=== PATIENT | male | born 1960 | race Caucasian/White ===

== ENCOUNTER 2017-05-05 20:54 | Emergency (ER) | payer OTHER ==
[2017-05-05] MEDS ORDERED: NS 1,000 ML IV ONE (21:00)
--- NOTE | 2017-05-05 21:05 | EDPHY ---
H & P Stated Complaint: choking at dinner HPI/ROS: HPI CHIEF COMPLAINT: Choking episode, CPR, brief period of unresponsiveness HISTORY OF PRESENT ILLNESS: This patient 57-year-old male he denies having any significant medical history denies taking any daily medications except recently prescribed hydrocodone after a dental procedure. Patient was at dinner tonight he was eating and appeared very somnolent. Have a choking episode according to EMS. His started doing CPR calling 911. EMS reports a brief unresponsive period. Patient had wine this evening. Unclear exactly how much. EMS make contact with him they placed a nasopharyngeal airway in. Placed him on a non- rebreather and brought him to the emergency room during transport he became more and more alert. They did give him 2 mg IN Narcan. This appeared to make an improvement. When I asked the patient what happened he has no idea. He reports he does not know. He denies any complaints. Specifically denies chest pain shortness of breath. Denies headache. Denies focal weakness numbness or tingling. Past Medical History: Denies significant medical history Past Surgical History: Recent dental surgery. Social History: Denies daily use of drugs alcohol tobacco products. Did drink wine tonight. Family History: Noncontributory. ROS REVIEW OF SYSTEMS: Review of systems somewhat limited due to patient's history and clinical picture. History comes from EMS. No family at bedside yet. Exam Constitutional alert and oriented, following commands appropriately, smells of alcohol, triage nursing summary reviewed, vital signs reviewed, awake/alert. Eyes normal conjunctivae and sclera, EOMI, PERRLA. HENT normal inspection, atraumatic, moist mucus membranes, no epistaxis, neck supple/ no meningismus, no raccoon eyes. Respiratory clear to auscultation bilaterally, normal breath sounds, no respiratory distress, no wheezing. Cardiovascular rate normal, regular rhythm, no murmur, no edema, distal pulses normal. Gastrointestinal soft, non-tender, no rebound, no guarding, normal bowel sounds, no distension, no pulsatile mass. Genitourinary no CVA tenderness. Musculoskeletal no midline vertebral tenderness, full range of motion, no calf swelling, no tenderness of extremities, no meningismus, good pulses, neurovascularly intact. Skin pink, warm, & dry, no rash, skin atraumatic. Neurologic awake, alert and oriented x 3, AAOx3, moves all 4 extremities equally, motor intact, sensory intact, CN II-XII intact, normal cerebellar, normal vision, normal speech. Psychiatric normal mood/affect. Heme/Lymph/Immune no lymphadenopathy. Differential Diagnosis: Includes but is not limited to in a particular order acute choking episode, cardiopulmonary arrest, hypoxic arrest, alcohol intoxication, narcotic overdose Medical Decision Making: Plan for this patient EKG, chest x-ray, blood work, monitor for recent a napier from narcotics. Check alcohol level. Gentle IV hydration full manager cardiac cath. Speak with family when they arrived. Re-evaluation: has arrived and reports the nursing staff that he was in the hot tub. He got out of the hot tub made himself peanut butter and jelly sandwich. He then ate a peanut butter and jelly sandwich and started choking on it. Additionally the reports that he has been taking his narcotics for his recent dental surgery additionally he had wine tonight. She reports that he started choking on the peanut butter and jelly sandwich and asked for help. He then became limp and unresponsive with blue lips. called 911 and did CPR. During brief episode of CPR he awoke. Unclear how long he was in the hot tub for this time. EKG interpretation by me on record in [employer] system. Impression time of EKG 2113, this is sinus tachycardia rate of 111. I do not appreciate acute ischemic change. No ST elevation. No significant ST depression. ED x-ray chest one view negative for aspiration negative for acute cardiopulmonary disease. Image interpreted by myself. 2328: This patient is very eager to be discharged from the emergency room is requesting discharge so is his . He is sitting up in bed he has normal vital signs. He did ambulate well throughout the emergency room. Pulse ox 94% . He p.o. challenge well here. He denies any chest pain or shortness of breath. He denies any neck pain. His reports he choking episode that she was able to do the Heimlich maneuver and cleared the peanut butter and jelly sandwich out of his mouth. No loss of pulse. The patient is eager to get home. I did recommend more time for observation here in the emergency room or in the hospital however the patient is decline. He would like to go home. additionally reports she did approximately 45 seconds or less of chest compressions. Given this patient is a negative troponin nonischemic EKG no evidence of pneumothorax on his chest x-ray ambulated well throughout the emergency room no hypoxia no ongoing symptoms I will allow her to go home. Strict return precautions have been given. Source: Patient, EMS - Medical/Surgical History Other PMH: HTN Constitutional: Initial Vital Signs Temperature (C) 36.2 C 05/05/17 21:01 Heart Rate 115 H 05/05/17 21:01 Respiratory Rate 18 05/05/17 21:01 Blood Pressure 169/120 H 05/05/17 21:01 O2 Sat (%) 91 L 05/05/17 21:01 O2 Delivery Mode Room Air O2 (L/minute) 3 Allergies/Adverse Reactions: No Known Allergies Allergy (Unverified 05/05/17 21:28) Medical Decision Making - Diagnostics Imaging Results: Imaging Impressions Chest X-Ray 05/05/17 21:00 Impression: No evidence for pneumonia. - Data Points Laboratory Results: Laboratory Results 05/05/17 21:20 05/05/17 21:00 05/05/17 05/05/17 05/05/17 22:30 21:20 21:00 WBC 7.06 10^3/uL 10^3/uL (3.80-9.50) RBC 4.04 10^6/uL L 10^6/uL (4.40-6.38) Hgb 13.5 g/dL L g/dL (13.7-17.5) Hct 39.8 % L % (40.0-51.0) MCV 98.5 fL fL (81.5-99.8) MCH 33.4 pg pg (27.9-34.1) MCHC 33.9 g/dL g/dL (32.4-36.7) RDW 12.3 % % (11.5-15.2) Plt Count 152 10^3/uL 10^3/uL (150-400) MPV 9.0 fL fL (8.7-11.7) Neut % (Auto) 52.1 % % (39.3-74.2) Lymph % (Auto) 35.1 % % (15.0-45.0) [place] % (Auto) 7.9 % % (4.5-13.0) Eos % (Auto) 2.8 % % (0.6-7.6) Baso % (Auto) 0.7 % % (0.3-1.7) Nucleat RBC Rel Count 0.0 % % (0.0-0.2) Absolute Neuts (auto) 3.67 10^3/uL 10^3/uL (1.70-6.50) Absolute Lymphs (auto) 2.48 10^3/uL 10^3/uL (1.00-3.00) Absolute Monos (auto) 0.56 10^3/uL 10^3/uL (0.30-0.80) Absolute Eos (auto) 0.20 10^3/uL 10^3/uL (0.03-0.40) Absolute Basos (auto) 0.05 10^3/uL 10^3/uL (0.02-0.10) Absolute Nucleated RBC 0.00 10^3/uL 10^3/uL (0-0.01) Immature Gran % 1.4 % H % (0.0-1.1) Immature Gran # 0.10 10^3/uL 10^3/uL (0.00-0.10) Sodium 142 mEq/L mEq/L (134-144) Potassium 4.1 mEq/L mEq/L (3.5-5.2) Chloride 106 mEq/L mEq/L (97-110) Carbon Dioxide 18 mEq/l L mEq/l (22-31) Anion Gap 18 mEq/L H mEq/L (8-16) BUN 12 mg/dL mg/dL (7-23) Creatinine 0.8 mg/dL mg/dL (0.7-1.3) Estimated GFR > 60 Glucose 118 mg/dL H mg/dL (70-100) Calcium 9.6 mg/dL mg/dL (8.5-10.4) Magnesium 1.8 mg/dL mg/dL (1.6-2.3) Total Bilirubin 0.5 mg/dL mg/dL (0.1-1.4) Conjugated Bilirubin 0.2 mg/dL mg/dL (0.0-0.5) Unconjugated Bilirubin 0.3 mg/dL mg/dL (0.0-1.1) AST 166 IU/L H IU/L (17-59) ALT 121 IU/L H IU/L (21-72) Alkaline Phosphatase 76 IU/L IU/L (38-126) Creatine Kinase 87 IU/L IU/L (0-224) CK-MB (CK-2) Fraction 2.60 ng/mL ng/mL (0.00-3.19) Troponin I < 0.012 ng/mL ng/mL (0.000-0.034) NT-Pro-B Natriuret Pep 102 pg/mL pg/mL (0-125) Total Protein 7.7 g/dL g/dL (6.3-8.2) Albumin 4.4 g/dL g/dL (3.5-5.0) Lipase 95 IU/L IU/L (23-300) Urine Color YELLOW Urine Appearance HAZY Urine pH 5.0 (5.0-7.5) Ur Specific [place] 1.010 (1.002-1.030) Urine Protein 1+ H (NEGATIVE) Urine Ketones NEGATIVE (NEGATIVE) Urine Blood 1+ H (NEGATIVE) Urine Nitrate NEGATIVE (NEGATIVE) Urine Bilirubin NEGATIVE (NEGATIVE) Urine Urobilinogen NEGATIVE EU EU (0.2-1.0) Ur Leukocyte Esterase NEGATIVE (NEGATIVE) Urine RBC 1-3 /hpf /hpf (0-3) Urine WBC 1-3 /hpf /hpf (0-3) Ur Epithelial Cells TRACE /lpf /lpf (NONE-1+) Urine Mucus TRACE /lpf /lpf (NONE-1+) Urine Sperm PRESENT /hpf /hpf (NONE SEEN) Urine Glucose NEGATIVE (NEGATIVE) Urine Opiates Screen NON-NEGATIVE H (NEGATIVE) Urine Barbiturates NEGATIVE (NEGATIVE) Ur Phencyclidine Scrn NEGATIVE (NEGATIVE) Ur Amphetamine Screen NEGATIVE (NEGATIVE) U Benzodiazepines Scrn NEGATIVE (NEGATIVE) Urine Cocaine Screen NEGATIVE (NEGATIVE) U Marijuana (THC) Screen NON-NEGATIVE H (NEGATIVE) Ethyl Alcohol 181 mg/dL H mg/dL (0-10) 05/05/17 05/05/17 21:00 20:30 WBC TNP RBC TNP Hgb TNP Hct TNP MCV TNP MCH TNP MCHC TNP RDW TNP Plt Count TNP MPV TNP Neut % (Auto) Not Reported Lymph % (Auto) Not Reported [place] % (Auto) Not Reported Eos % (Auto) Not Reported Baso % (Auto) Not Reported Nucleat RBC Rel Count Not Reported Absolute Neuts (auto) Not Reported Absolute Lymphs (auto) Not Reported Absolute Monos (auto) Not Reported Absolute Eos (auto) Not Reported Absolute Basos (auto) Not Reported Absolute Nucleated RBC Not Reported Immature Gran % Not Reported Immature Gran # Not Reported Sodium Potassium Chloride Carbon Dioxide Anion Gap BUN Creatinine Estimated GFR Glucose Calcium Magnesium Total Bilirubin Conjugated Bilirubin Unconjugated Bilirubin AST ALT Alkaline Phosphatase Creatine Kinase CK-MB (CK-2) Fraction Troponin I Cancelled NT-Pro-B Natriuret Pep Total Protein Albumin Lipase Urine Color Urine Appearance Urine pH Ur Specific [place] Urine Protein Urine Ketones Urine Blood Urine Nitrate Urine Bilirubin Urine Urobilinogen Ur Leukocyte Esterase Urine RBC Urine WBC Ur Epithelial Cells Urine Mucus Urine Sperm Urine Glucose Urine Opiates Screen Urine Barbiturates Ur Phencyclidine Scrn Ur Amphetamine Screen U Benzodiazepines Scrn Urine Cocaine Screen U Marijuana (THC) Screen Ethyl Alcohol Medications Given: Discontinued Medications Sodium Chloride (Ns) 1,000 mls @ 0 mls/hr IV EDNOW ONE; Wide Open PRN Reason: Protocol Stop: 05/05/17 21:01 Last Admin: 05/05/17 21:07 Dose: 1,000 mls Departure - Departure Disposition: Home, Routine, Self-Care Clinical Impression: Choking Qualifiers: Encounter type: initial encounter Qualified Code(s): T17.308A - Unspecified foreign body in larynx causing other injury, initial encounter Condition: Good Instructions: Foreign Body Ingestion (ED) Additional Instructions: 1. Return immediately to the emergency room if you have any worsening symptoms questions or concerns. Referrals: Patient,NotPresent [Unknown] - As per Instructions
--- NOTE | 2017-05-05 21:16 | CPEKG ---
Heart Rate: 111 RR Interval: 541 P-R Interval: 160 QRSD Interval: 112 QT Interval: 356 QTC Interval: 484 P Dearing: 13 QRS Dearing: 37 T Wave Dearing: 29 EKG Severity - ABNORMAL ECG - EKG Impression: SINUS TACHYCARDIA EKG Impression: NONSPECIFIC INTRAVENTRICULAR CONDUCTION DELAY EKG Impression: PROBABLE POSTERIOR INFARCT Electronically Signed By: Benito Herrera 06-May-2017 03:00:34
[2017-05-05 21:23] LABS: ALANINE AMINOTRANSFERASE 121 IU/L (21-72); ALBUMIN 4.4 g/dL (3.5-5.0); ALKALINE PHOSPHATASE 76 IU/L (38-126); ANION GAP 18 mEq/L (8-16); ASPARTATE AMINOTRANSFERASE 166 IU/L (17-59); BILIRUBIN,TOTAL 0.5 mg/dL (0.1-1.4); BILIRUBIN-CONJUGATED 0.2 mg/dL (0.0-0.5); BILIRUBIN-UNCONJUGATED 0.3 mg/dL (0.0-1.1); CALCIUM 9.6 mg/dL (8.5-10.4); CARBON DIOXIDE 18 mEq/l (22-31); CHLORIDE 106 mEq/L (97-110); CREATININE 0.8 mg/dL (0.7-1.3); ETHANOL SERUM 181 mg/dL (0-10); GLOMERULAR FILTRATION RATE > 60; GLUCOSE 118 mg/dL (70-100); MAGNESIUM 1.8 mg/dL (1.6-2.3); POTASSIUM 4.1 mEq/L (3.5-5.2); SODIUM 142 mEq/L (134-144); TOTAL PROTEIN 7.7 g/dL (6.3-8.2)
[2017-05-05 21:32] LABS: % IMMATURE GRANULYOCYTES 1.4 % (0.0-1.1); ADD DIFF? NO; ADD MORPH? NO; ADD SCAN? NO; ATYPICAL LYMPHOCYTE FLAG 0 (0-99); FRAGMENT RBC FLAG 0 (0-99); HEMATOCRIT 39.8 % (40.0-51.0); HEMOGLOBIN 13.5 g/dL (13.7-17.5); LEFT SHIFT FLG 10 (0-99); LIPEMIA HEMOLYSIS FLAG 90 (0-99); MEAN CELL HEMOGLOBIN 33.4 pg (27.9-34.1); MEAN CELL HEMOGLOBIN CONCENTR. 33.9 g/dL (32.4-36.7); MEAN CELL VOLUME 98.5 fL (81.5-99.8); PLATELET CLUMPS FLAG 20 (0-99); PLATELET COUNT 152 10^3/uL (150-400); RED BLOOD CELL COUNT 4.04 10^6/uL (4.40-6.38); RED CELL DISTRIBUTION WIDTH 12.3 % (11.5-15.2)
[2017-05-05 21:34] LABS: TROPONIN I < 0.012 ng/mL (0.000-0.034)
[2017-05-05 22:35] LABS: COLOR YELLOW; LEUKOCYTE ESTERASE,URINE NEGATIVE (NEGATIVE); NITRITE,URINE NEGATIVE (NEGATIVE)
[2017-05-05 22:42] LABS: MUCUS TRACE /lpf (NONE-1+)
[2017-05-05 23:16] VITALS: BP 166/108; PULSE 97; RESP 16; TEMP 98.1; O2SAT 94
== END 2017-05-05 23:37 | disposition home or self-care (01) ==
LOC: EDUNIT#
DX: R09.89 Other specified symptoms and signs involving the circulatory and respiratory systems (principal); I10 Essential (primary) hypertension; E86.9 Volume depletion, unspecified
CPT/HCPCS: 80305; G0480